=== PATIENT | female | born 1950 | race Two or more races ===

== ENCOUNTER 2020-03-15 13:03 | Inpatient (IN) | payer OTHER, MEDICAID ==
[~2020-03-15] VITALS: Ht 167.6 cm; Wt 109.0 kg
[2020-03-15 13:57] LABS: Basophils # (auto) 0 10 ^3/uL (0-0.2); Basophils % (auto) 0.7 % (0.0-2.0); Eosinophils # (auto) 0.2 10 ^3/uL (0-0.8); Eosinophils % (auto) 2.7 % (0.0-7.0); Hematocrit 42.6 % (36.0-46.0); Lymphocytes % (auto) 29.3 % (10.0-50.0); Mean Corpuscular Hemoglobin 27.5 pg (28.0-32.0); Mean Corpuscular Hgb Conc. 32.8 g/dL (32.0-36.0); Mean Corpuscular Volume 83.6 fL (80.0-100.0); Monocytes # (auto) 0.5 10 ^3/uL (0-1.3); Monocytes % (auto) 7.6 % (0.0-12.0); Neutrophils # (auto) 4.1 10 ^3/uL (1.6-8.6); Neutrophils % (auto) 59.7 % (37.0-80.0); Nucleated Red Blood Cells % 0.1 %; Platelet Count (auto) 341 10^3/uL (140-450); Red Cell Distribution Width 15.1 % (11.8-14.3); White Blood Cell 6.9 10^3/uL (4.4-10.8)
[2020-03-15 14:23] LABS: Anion Gap 6 (5-15); Blood Urea Nitrogen 16 mg/dL (7-18); Calcium 8.6 mg/dL (8.5-10.1); Carbon Dioxide 25 mmol/L (21-32); Chloride 108 mmol/L (98-107); Glucose 111 mg/dL (74-106); Potassium 3.7 mmol/L (3.5-5.1); Sodium 139 mmol/L (136-145)
[2020-03-15 14:31] LABS: Alanine Aminotransferase 16 U/L (13-56); Albumin 3.3 g/dL (3.4-5.0); Alkaline Phosphatase 101 U/L (45-117); Aspartate Aminotransferase 12 U/L (15-37); BUN/Creatinine Ratio 25.8; Bilirubin, Total 0.4 mg/dL (0.2-1.0); GFR African American 122 mL/min; GFR Non-African American 101 mL/min
[2020-03-15] MEDS ORDERED: ASPirin 81 mg TAB PO ONE (16:30)
[2020-03-15 17:00] LABS: INR 0.98 (0.9-1.15); Partial Thromboplastin Time 27.4 sec (23.0-31.2)
[2020-03-15] MEDS ORDERED: IOHEXOL 350 MG/ML 100ML IJ ONE (18:59)
[2020-03-15] MEDS ORDERED: NITROGLYCERIN 0.4 MG SL TAB SL PRN (22:15)
[2020-03-15] MEDS ORDERED: MORPHINE SULF INJ 2 MG/ML SYRINGE 1ML IV PRN (22:15)
[2020-03-15] MEDS ORDERED: ACETAMINOPHEN 325 MG TAB PO PRN (22:15)
[2020-03-15] MEDS ORDERED: ONDANSETRON HCL 4 MG/2 ML VIAL IV PRN (22:15)
[2020-03-16] VITALS (8 sets, daily range): BP systolic 122–152; BP diastolic 59–92
--- NOTE | 2020-03-16 | NUR ---
Telemetry admit from ER ABHIJEET VILLEGAS admitted to Telemetry unit after SBAR received. Patient oriented to Karen Tim RN primary RN, unit, room, bed, and unit policies regarding patient care and visiting hours. Patient now on continuous telemetry monitoring, tele box # [id number]. Patient placed on bedside oxygen at 2 liters weighed by bedscale and encouraged to call if they need something. All questions and concerns addressed, patient verbalized understanding. Bed is in lowest locked position with bed rails up x 2 and call light is within reach of the patient.
--- NOTE | 2020-03-16 04:54 | NUR ---
systems protection technician called, EKG done: systems protection technician called and reported patients heart rhythm had suspicious slight ST elevation in heart rhythm. This RN went to check on the patient, patient reports no pain or pressure, states " Im feeling good." EKG performed to verify heart rhythm which reads sinus rhythm at rate of 84. Placed EKG in chart. Continue care.
[2020-03-16] MEDS ORDERED: ALBUTEROL SULF 2.5 MG/0.5ML(0.5%) NEB SOLN NEB SCH (06:00)
--- NOTE | 2020-03-16 08:39 | NUR ---
PATIENT REFUSING LOVENOX INJECTION AT THIS TIME. EDUCATED ON NEED FOR MEDICATION, PATIENT VERBALIZED UNDERSTANDING AND CONTINUES TO REFUSE MEDICATION.
[2020-03-16 09:16] LABS: Basophils # (auto) 0 10 ^3/uL (0-0.2); Basophils % (auto) 0.6 % (0.0-2.0); Eosinophils # (auto) 0.2 10 ^3/uL (0-0.8); Eosinophils % (auto) 3.9 % (0.0-7.0); Hemoglobin 13.7 g/dL (12.2-16.2); Lymphocytes # (auto) 1.6 10 ^3/uL (0.4-5.4); Mean Corpuscular Hemoglobin 27.5 pg (28.0-32.0); Mean Corpuscular Hgb Conc. 32.7 g/dL (32.0-36.0); Mean Corpuscular Volume 84.1 fL (80.0-100.0); Monocytes # (auto) 0.5 10 ^3/uL (0-1.3); Monocytes % (auto) 9.1 % (0.0-12.0); Neutrophils # (auto) 3.6 10 ^3/uL (1.6-8.6); Neutrophils % (auto) 59.4 % (37.0-80.0); Nucleated Red Blood Cells % 0.1 %; Platelet Count (auto) 308 10^3/uL (140-450); Red Blood Cells 4.99 10^6/uL (4.0-5.20); Red Cell Distribution Width 15.8 % (11.8-14.3)
[2020-03-16 09:28] LABS: Calcium 8.2 mg/dL (8.5-10.1); Chloride 111 mmol/L (98-107); Glucose 87 mg/dL (74-106); Potassium 3.8 mmol/L (3.5-5.1); Sodium 141 mmol/L (136-145)
[2020-03-16 09:34] LABS: Alanine Aminotransferase 13 U/L (13-56); Alkaline Phosphatase 90 U/L (45-117); Anion Gap 5 (5-15); Aspartate Aminotransferase 15 U/L (15-37); BUN/Creatinine Ratio 26.8; Bilirubin, Total 0.3 mg/dL (0.2-1.0); Blood Urea Nitrogen 15 mg/dL (7-18); Carbon Dioxide 25 mmol/L (21-32); Cholesterol 257 mg/dL (< 200); GFR African American 138 mL/min; GFR Non-African American 114 mL/min; HDL Cholesterol 40 mg/dL (40-59); LDL Cholesterol 175 mg/dL (< 100); Magnesium 2.6 mg/dL (1.6-2.6); Phosphorus 3.6 mg/dL (2.5-4.90); Total Protein 6.2 g/dL (6.4-8.2); Triglycerides 262 mg/dL (< 150)
[2020-03-16] MEDS ORDERED: ASPirin 81 mg TAB PO SCH (10:00)
[2020-03-16] MEDS ORDERED: ENOXAPARIN SOD 40 MG/0.4 ML SYRINGE SC SCH (10:00)
[2020-03-16] MEDS ORDERED: ALBUTEROL SULF 2.5 MG/0.5ML(0.5%) NEB SOLN NEB PRN (11:15)
--- NOTE | 2020-03-16 12:33 | NUR ---
Alexander OLIVER AT BEDSIDE. STATED OK TO DC FROM HIS STANDPOINT AFTER ECHOCARDIOGRAM.
--- NOTE | 2020-03-16 14:02 | NUR ---
SPOKE TO Nasir MARKS, STATED THIS WAS HIS PATIENT AND HE WOULD BE IN LATER ON TO SEE PATIENT.
--- NOTE | 2020-03-16 14:03 | NUR ---
PATIENT TRANSFERRED TO [facility]. ISRAEL JOHNSON TRANSPORTING PATIENT VIA WHEELCHAIR. PATIENT ON TELEMETRY MONITORING. NO S/S OF DISTRESS NOTED. CALLED TELEMETRY OFFICE TO INFORM OF PATIENTS ROOM TRANSFER. REPORT GIVEN TO ISRAEL JOHNSON.
--- NOTE | 2020-03-16 14:06 | NUR ---
Telemetry transfer from [facility],ABHIJEET transferred to [facility] after SBAR received. Patient oriented to ALEX DHALIWAL RN primary RN, unit, room, and bed. Patient on continuous telemetry monitoring, new tele box #[id number] and telemetry reading on arrival to unit is SR. Patient encouraged to call if they need something. All questions and concerns addressed, patient verbalized understanding.
--- NOTE | 2020-03-16 19:10 | NUR ---
PT ASSESSED, PRN TX NOT INDICATED
--- NOTE | 2020-03-16 19:17 | NUR ---
Endorsed report to night ISRAEL Lema. Per ISRAEL Macias's note, Per MD Cronin patient may be DC'd after echo. Torey aware of discharge order and verbalized understanding.
--- NOTE | 2020-03-16 21:05 | NUR ---
Discharge instructions given as ordered. Encourage to follow up with PMD as instructed. All questions and concerns addressed. Patient verbalized understanding. Medication reconciliation form completed and copy given to patient. Home medications held in Pharmacy returned to patient, and needed vaccines given. IV removed with catheter intact, pressure dressing applied, menjivar catheter removed. Telemetry unit returned to ICU. Patient taken to vehicle via wheelchair with all personal belongings, accompanied by staff and family member. No distress noted at time of departure.
[2020-03-16] MEDS ORDERED: ATORVASTATIN 20 MG TAB PO SCH (22:00)
== END 2020-03-16 21:05 | disposition home or self-care (01) | DRG 313 ==
LOC: ER 13:03 → TELE 13:04 → TELE-EAST 23:25 → TELE-WESTW 03-16 14:06
PROVIDERS: ADMIT Internal Medicine; ATTEND Internal Medicine
DX: R07.89 Other chest pain (principal); K80.20 Calculus of gallbladder without cholecystitis without obstruction; M19.90 Unspecified osteoarthritis, unspecified site; Z20.828 Contact with and (suspected) exposure to other viral communicable diseases; Z90.710 Acquired absence of both cervix and uterus; Z82.49 Family history of ischemic heart disease and other diseases of the circulatory system
CPT/HCPCS: 36415; 71046; 71275; 76705; 80053; 80061; 83036; 83735; 83880; 84100; 84484; 85025; 85379; 85610; 85730; 87426; 93005; 93306; 94640; G0378